=== PATIENT | female | born 1980 | race Caucasian/White ===

== ENCOUNTER 2025-06-02 05:42 | Emergency (ER) | payer BC ==
[~2025-06-02] VITALS: Ht 167.6 cm; Wt 65.8 kg
[2025-06-02] MEDS ORDERED: ONDANSETRON HCL/PF 4 MG/2 ML VIAL ONE (06:21)
[2025-06-02] MEDS ORDERED: MAG HYDROX/AL HYDROX/SIMETH 30 ML UDC ONE (06:21)
[2025-06-02] MEDS ORDERED: LIDOCAINE VISCOUS 2% UD 15 ML UDC ONE (06:22)
[2025-06-02] MEDS ORDERED: FAMOTIDINE/PF INJ 20 MG/2 ML VIAL IV ONE (06:22)
[2025-06-02] MEDS: ONDANSETRON HCL/PF 4 MG/2 ML VIAL IVP ONE (06:23)
[2025-06-02] MEDS: FAMOTIDINE/PF INJ 20 MG/2 ML VIAL IV ONE (06:23)
[2025-06-02] MEDS: MAG HYDROX/AL HYDROX/SIMETH 30 ML UDC PO ONE (06:23)
[2025-06-02] MEDS: LIDOCAINE VISCOUS 2% UD 15 ML UDC MM ONE (06:23)
[2025-06-02] MEDS: IV NS 0.9% 1,000 ML BAG IV ONE (06:23)
[2025-06-02 06:30] LABS: APPEARANCE,URINE SLIGHTLY CLOUDY (CLEAR); BLOOD, URINE NEGATIVE Ery/uL (NEGATIVE); LEUKOCYTE ESTERASE ,URINE NEGATIVE (NEGATIVE); NITRITE, URINE NEGATIVE (NEGATIVE); UGLUCOSE NEGATIVE (NEGATIVE)
[2025-06-02 06:42] LABS: ASPARTATE AMINOTRANSFERASE 21.0 U/L (15-37); CALCIUM, SERUM 9.0 mg/dL (8.5-10.1); CREATININE 0.7 mg/dL (0.6-1.3); SODIUM SERUM 139.0 mmol/L (136-145); TOTAL PROTEIN, SERUM 8.4 g/dL (6.4-8.2); UREA NITROGEN, BLOOD 14.0 mg/dL (7-18)
[2025-06-02 06:44] LABS: ADD URINE CULTURE NO; SQUAMOUS EPITHELIAL CELL,UR Few /HPF (None Seen)
[2025-06-02 06:45] LABS: PREGNANCY TEST URINE QUAL NEGATIVE (NEGATIVE)
[2025-06-02 06:50] LABS: PLATELET COUNT (AUTO) 317 K/uL (150-450); RED BLOOD CELL COUNT(AUTO) 4.93 MIL/uL (4.0-5.2); RED CELL DISTRIBUTION WIDTH 12.4 % (11.5-15.0); WHITE BLOOD COUNT (AUTO) 12.6 K/uL (4.3-11.0)
[2025-06-02] MEDS ORDERED: ONDA4TAB5 PO (07:09)
[2025-06-02] MEDS ORDERED: FAMO-131 PO (07:09)
[2025-06-02 08:04] VITALS: BP 115/80; TEMP 98.5; O2SAT 97
== END 2025-06-02 08:05 | disposition home or self-care (01) ==
LOC: ER 05:50
DX: R10.13 Epigastric pain (principal); R11.2 Nausea with vomiting, unspecified; R19.7 Diarrhea, unspecified; M79.7 Fibromyalgia; Z87.440 Personal history of urinary (tract) infections; Z90.49 Acquired absence of other specified parts of digestive tract; Z98.891 History of uterine scar from previous surgery
CPT/HCPCS: 99284; 96374; 96361; 96375; 85025; 80048; 83690; 80076; 84703; 81001; 36415; J1308; J2405; J7030